=== PATIENT | female | born 2000 | race Caucasian/White ===

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

== ENCOUNTER 2018-03-20 21:32 | Inpatient (IN) | payer OTHER ==
[2018-03-20 22:01] LABS: APPEARANCE,URINE CLOUDY; BILIRUBIN,URINE NEGATIVE (NEGATIVE); COLOR,URINE AMBER; GLUCOSE, URINE NEGATIVE (NEGATIVE); KETONES,URINE NEGATIVE (NEGATIVE); LEUKOCYTE ESTERASE,URINE LARGE (NEGATIVE); NITRITE,URINE NEGATIVE (NEGATIVE); PROTEIN,URINE 30 mg/dL (NEGATIVE); URINE SPECIFIC GRAVITY 1.023
[2018-03-20 22:19] LABS: URINE AMPHETAMINES SCREEN NEGATIVE; URINE BARBITURATES SCREEN NEGATIVE; URINE BENZODIAZEPINES SCREEN NEGATIVE; URINE COCAINE SCREEN NEGATIVE; URINE MARIJUANA (THC) SCREEN NEGATIVE; URINE METHADONE SCREEN NEGATIVE; URINE PHENCYCLIDINE SCREEN NEGATIVE
[2018-03-20 22:43] LABS: AMNISURE (ROM) NEGATIVE (NEGATIVE)
[2018-03-20] MEDS ORDERED: RINGERS SOLUTION,LACTATED 1,000 ML IV ONE (22:48)
[2018-03-20] MEDS ORDERED: PENICILLIN G POTASSIUM 5,000,000 UNIT in DEXTROSE 5%-WATER 100 ML IV ONE (22:48)
[2018-03-20] MEDS ORDERED: RINGERS SOLUTION,LACTATED 1,000 ML IV PRN (22:48)
[2018-03-20] MEDS ORDERED: PENICILLIN G-K 5 MILLION UNIT VIAL ONE (22:54)
[2018-03-20 23:31] LABS: CHLAM PCR NOT DETECTED (NOT DETECT); GON PCR NOT DETECTED (NOT DETECT)
[2018-03-20 23:32] LABS: ABSOLUTE BASOPHILS # (AUTO) 0.1 10^3/uL (0.0-0.2); ABSOLUTE EOSINOPHILS # (AUTO) 0.2 10^3/uL (0.0-0.6); ABSOLUTE LYMPHOCYTES (AUTO) 2.1 10^3/uL (0.5-4.7); ABSOLUTE MONOCYTES (AUTO) 0.9 10^3/uL (0.1-1.4); ABSOLUTE NEUT (AUTO) 10.2 10^3/uL (1.7-8.2); BASOPHILS % (AUTO) 0.5 % (0-2); EOSINOPHILS % (AUTO) 1.7 % (0-6); HEMATOCRIT 29.7 % (36.0-47.0); HEMOGLOBIN 9.4 g/dL (12.0-15.5); LYMPHOCYTES % (AUTO) 15.5 % (13-45); MEAN CORPUSCULAR HEMOGLOBIN 21.1 pg (27.0-33.4); MEAN CORPUSCULAR HGB CONC 31.7 g/dL (32.0-36.0); MEAN CORPUSCULAR VOLUME 67 fl (80-97); MONOCYTES % (AUTO) 6.5 % (3-13); PLATELET COUNT 262 10^3/uL (150-450); RED BLOOD COUNT 4.46 10^6/uL (3.72-5.28); RED CELL DISTRIBUTION WIDTH 18.8 % (11.5-14.0); SEGMENTED NEUTROPHILS % (AUTO) 75.8 % (42-78); TOTAL CELLS COUNTED % (AUTO) 100 %; WHITE BLOOD COUNT 13.5 10^3/uL (4.0-10.5)
[2018-03-20] MEDS ORDERED: ACETAMINOPHEN 325 MG TABLET ONE (23:40)
[2018-03-20] MEDS ORDERED: ONDANSETRON HCL INJ/PF 4 MG/2 ML SDV ONE (23:41)
--- NOTE | 2018-03-21 01:20 | Admission Physical ---
Datetime Report Generated by CPN: 03/21/2018 01:19 CURRENT ADMISSION Chief Complaint: Uterine Contractions Indication for Induction: Not Applicable; Post Dates Admit Impression : Term, Intrauterine ; Active Labor Admit Plan: Admit to Unit; Initiate Labor Protocol Admit Plan- Other: no care. disengaged from [facility] in December of 2017 ALLERGIES Medication Allergies: No Medication Allergies: No Known Allergies (03/20/2018) Latex: No Latex Allergies Food Allergies: N/A Environmental Allergies: N/A OBSTETRICAL HISTORY EDC: 03/10/2018 00:00 : 3 Para: 2 Term: 2 : 0 SAB: 0 IAB: 0 Ectopic: 0 Livin Cesareans: 0 VBACs: 0 Multiple Births: 0 Gestational Diabetes: No Rh Sensitization: No Incompetent Cervix: No RONA: No Infertility: No ART Treatment: No Uterine Anomaly: No IUGR: No Hx Previous C/S: No Macrosomia: No Hx Loss/Stillborn: No PIH: No Hx : No Placenta Previa/Abruption: No Depression/PP Depression: No PTL/PROM: No Post Hemorrhage: No Current Procedures: None Obstetrical History Comments: G1: 40 weeks G2: 40 weeks G3: current SEE RECORDS Alcohol: No Marijuana : No Cocaine: No Other Illicit Drugs: No Cigarettes: Never Smoker. [id number] MEDICAL HISTORY Diabetes: No Blood Transfusion: No Pulmonary Disease (Asthma, TB): No Breast Disease: No Hypertension: No Information Analyst Surgery: No Heart Disease: No Hosp/Surgery: Yes Autoimmune Disorder: No Anesthetic Complications: No Kidney Disease: No Abnormal Pap Smear: No Neuro/Epilepsy: No Psychiatric Disorders: No Other Medical Diseases: No Hepatitis/Liver Disease: No Significant Family History: No Varicosities/Phlebitis: No Trauma/Violence : No Thyroid Dysfunction: No Medical History Comments: Tonsillectomy Childbirth INFECTIOUS HISTORY Gonorrhea: No Genital Herpes: No Chlamydia: No Tuberculosis: No Syphilis: No Hepatitis: No HIV/AIDS Exposure: No Rash or Viral Illness: No HPV: No PHYSICAL EXAM General: Normal HEENT: Normal Neurologic: Normal Thyroid: Normal Heart: Normal Lungs: Normal Breast: Normal Back: Normal Abdomen: Normal Genitourinary Exam: Normal Extremities: Normal DTRs: Normal Pelvic Type: Adequate Vital Signs: Reviewed; Within Normal Limits VAGINAL EXAM Dilatation: 4 Effacement: 80 Station: -3 MEMBRANES Pooling: Negative Membranes: Intact FETUS A EGA: 41.4 Monitoring: External US FHR- Baseline: 150 Variability: Moderate 6-25bpm Accelerations: 15X15 FHR Category: Category I Estimated Weight (gm): 3800 Presentation: Vertex PLANS FOR LABOR AND DELIVERY Labor and Delivery: None Pain Management: Natural Feeding Preference: Formula Benefit of Breast Feed Discussed: Yes Circumcision: Yes INFORMED CONSENT Signature: with User ID: [email or web address]
[2018-03-21] MEDS ORDERED: PENICILLIN G-K 5 MILLION UNIT VIAL ONE ×2 (02:19→05:58)
[2018-03-21] MEDS: PENICILLIN G POTASSIUM 2,500,000 UNIT in DEXTROSE 5%-WATER 50 ML IV SCH ×5 (02:33→18:23)
[2018-03-21] MEDS ORDERED: LIDOCAINE 1% INJ-PF (10 MG/ML) 30 ML SDV ONE (05:17)
[2018-03-21] MEDS ORDERED: OXYTOCIN/NORMAL SALINE 20 UNIT/1,000 ML RTUINJ ONE (05:17)
[2018-03-21] MEDS ORDERED: MISOPROSTOL 0.2 MG TABLET ONE (05:17)
[2018-03-21] MEDS ORDERED: PROMETHAZINE HCL 25 MG TABLET PO PRN (07:22)
[2018-03-21] MEDS ORDERED: BENZOCAINE/MENTHOL AEROSOL SPRAY 56 ML TOP PRN (07:22)
[2018-03-21] MEDS ORDERED: NA PHOS,M-B/NA PHOS,DI-BA (ADULT) 133 ML ENEMA PR PRN (07:22)
[2018-03-21] MEDS ORDERED: DIPHENHYDRAMINE HCL 25 MG CAPSULE PO PRN (07:22)
[2018-03-21] MEDS ORDERED: ACETAMINOPHEN 325 MG TABLET PO PRN (07:22)
[2018-03-21] MEDS ORDERED: DIBUCAINE 1% OINTMENT 28 GM TP PRN (07:22)
[2018-03-21] MEDS ORDERED: MEASLES,MUMPS&RUBELLA VACC/PF 0.5 ML VIAL SUBCUT PRN (07:22)
[2018-03-21] MEDS ORDERED: PROMETHAZINE HCL INJ 25 MG/1 ML VIAL IV PRN (07:22)
[2018-03-21] MEDS ORDERED: ZOLPIDEM TARTRATE 5 MG TABLET PO PRN (07:22)
[2018-03-21] MEDS ORDERED: ACETAMINOPHEN 650 MG SUPP.RECT PR PRN (07:22)
[2018-03-21] MEDS ORDERED: OXYTOCIN/NORMAL SALINE 20 UNIT/1,000 ML RTUINJ IV PRN (07:22)
[2018-03-21] MEDS ORDERED: PSEUDOEPHEDRINE HCL 30 MG TABLET PO PRN (07:22)
[2018-03-21] MEDS ORDERED: PROMETHAZINE HCL 25 MG SUPP.RECT PR PRN (07:22)
[2018-03-21] MEDS ORDERED: ACETAMINOPHEN WITH CODEINE #3 TABLET PO PRN ×2 (07:22)
[2018-03-21] MEDS ORDERED: DIPH/PERTUSS(ACELL)/TETANUS VAC/PF 0.5 ML SYR (>=10YO) IM PRN (07:22)
[2018-03-21] MEDS ORDERED: GLYCERIN/WITCH HAZEL LEAF 1 EACH MED..PAD TP PRN (07:22)
[2018-03-21] MEDS ORDERED: MAGNESIUM HYDROXIDE SUSP 30 ML UDCUP PO PRN (07:22)
--- NOTE | 2018-03-21 08:36 | Delivery Summary ---
Del Sum A-C Datetime Report Generated by CPN: 03/21/2018 08:36 DELIVERY PERSONNEL DELIVERY PERSONNEL: [id number] Delivery Doctor:: Any Tsai MD Labor and Delivery Nurse:: Leena Ludwig RNcnc machinist 2nd shift Nurse:: Brittani Antoine RN Director Of State/PACKAGE CAR DRIVER: Tae Almanzar PACKAGE CAR DRIVER Additional Personnel: : Avril Gonsales RN MATERNAL INFORMATION Delivery Anesthesia: None Medications After Delivery: Pitocin Bolus-Please Comment Meds After Delivery Comment: Pitocin 20 Units in 1 L NS Bolusing Estimated Blood Loss (ml): 150 Maternal Complications: None Provider Comments: delivered in normal fashion while patient on floor at bedside. LABOR SUMMARY EDC: 03/10/2018 00:00 No. Babies in Womb: 1 Attempted: No Labor Anesthesia: None LABOR INFORMATION Reason for Induction: Not Applicable Onset of Labor: 03/21/2018 02:29 Complete Dilatation: 03/21/2018 06:28 Oxytocin: N/A Group B Beta Strep: Unknown Antibiotics # of Doses: 3 Antibiotics Time of Last Dose: 04 Name of Antibiotic Given: PCN Steroids Given: None Reason Steroids Not Administered: Not Applicable MEMBRANES Membranes Rupture Method: Artificial Rupture of Membranes: 03/21/2018 02:29 Length of Rupture (hr): 4.03 Amniotic Fluid Color: Clear Amniotic Fluid Amount: Small Amniotic Fluid Odor: Normal STAGES OF LABOR Stage 1 hr: 3 Stage 1 min: 59 Stage 2 hr: 0 Stage 2 min: 3 Stage 3 hr: 0 Stage 3 min: 5 Total Time in Labor hr: 4 Total Time in Labor min: 7 VAGINAL DELIVERY Episiotomy: None Laceration #1: None Laceration Extension #1: N/A Laceration Repair: Not Applicable Sponge Count Correct: N/A Sharps Count Correct: N/A CSECTION DELIVERY Primary Indication: N/A Secondary Indication: N/A CSection Incidence: N/A Labor: N/A Elective: N/A CSection Incision: N/A BABY A INFORMATION Delivery Date/Time: 03/21/2018 06:31 Method of Delivery: Vaginal Born in Route : No : N/A Forceps: N/A Vacuum Extraction: N/A Shoulder Dystocia : No PRESENTATION/POSITION BABY A Presentation: Cephalic Cephalic Presentation: Vertex Vertex Position: Right Occipital Anterior Breech Presentation: N/A PLACENTA INFORMATION BABY A Placenta Delivery Time : 03/21/2018 06:36 Placenta Method of Delivery: Spontaneous Placenta Status: Delivered SCORES BABY A Heart Rate 1 min: >100 bpm Resp Effort 1 min: Good Cry Reflex Irritability 1 min: Cough or Sneeze or Pulls Away Muscle Tone 1 min: Active Motion Color 1 min: Body Toyei, Extremities Blue Resuscitation Effort 1 min: Tactile Stimulation SCORE 1 MIN: 9 Heart Rate 5 min: >100 bpm Resp Effort 5 min: Good Cry Reflex Irritability 5 min: Cough or Sneeze or Pulls Away Muscle Tone 5 min: Active Motion Color 5 min: Body Toyei, Extremities Blue Resuscitation Effort 5 min: Tactile Stimulation SCORE 5 MIN: 9 INFANT INFORMATION BABY A Gestational Age at Delivery: 41.4 Gestational Status: Late Term- 41- 41.6 Weeks Infant Outcome : Liveborn Infant Condition : Stable Infant Sex: Male IDENTIFICATION BABY A Infant Verification Date/Time: 03/21/2018 06:58 ID Band Number: [id number] Mother's Name Verified: Yes Infant RN Verifying : M Hill RN C Gentilin RN WEIGHT/LENGTH BABY A Infant Birthweight (gm): 4270 Weight (lb): 9 Weight (oz): 7 Length (in): 22.00 Length (cm): 55.88 CORD INFORMATION BABY A No. Cord Vessels: 3 Nuchal Cord : N/A Cord Blood Taken: No-Annotate Infant Suction: None ASSESSMENT BABY A Complications: Multiple Variable Decels Physical Findings at Delivery: Molding of the Head Infant Respirations: Appears Normal Skin to Skin: Yes Medical Collections/ALS Called : No Care By: Julia Ludwig RN Transferred To: Remains with Mother BABY B INFORMATION : N/A SIGNATURES Signature: with User ID: [email or web address]
[2018-03-21] MEDS: SENNOSIDES/DOCUSATE 8.6-50 MG 1 EACH TABLET PO SCH (10:32)
[2018-03-21] MEDS: DOCUSATE SODIUM 100 MG CAPSULE PO SCH ×2 (10:32→18:23)
[2018-03-21] MEDS: PRENATAL VITAMIN W DHA CAPSULE PO SCH (10:33)
[2018-03-21] MEDS: FAMOTIDINE 20 MG TABLET PO SCH ×2 (10:33→21:27)
[2018-03-21] MEDS: FERROUS SULFATE 325 MG TABLET PO SCH ×2 (10:33→18:22)
[2018-03-21] MEDS: IBUPROFEN 800 MG TABLET PO SCH ×2 (13:19→21:27)
[2018-03-22] MEDS: PENICILLIN G POTASSIUM 2,500,000 UNIT in DEXTROSE 5%-WATER 50 ML IV SCH ×2 (05:26→06:07)
[2018-03-22] MEDS: IBUPROFEN 800 MG TABLET PO SCH ×3 (05:48→21:20)
[2018-03-22 07:43] LABS: HEMATOCRIT 27.6 % (36.0-47.0); HEMOGLOBIN 8.8 g/dL (12.0-15.5); MEAN CORPUSCULAR HEMOGLOBIN 21.8 pg (27.0-33.4); MEAN CORPUSCULAR HGB CONC 31.8 g/dL (32.0-36.0); MEAN CORPUSCULAR VOLUME 69 fl (80-97); PLATELET COUNT 228 10^3/uL (150-450); RED BLOOD COUNT 4.02 10^6/uL (3.72-5.28); RED CELL DISTRIBUTION WIDTH 18.6 % (11.5-14.0); WHITE BLOOD COUNT 12.3 10^3/uL (4.0-10.5)
--- NOTE | 2018-03-22 09:22 | PDOC PROGRESS REPORT ---
Subjective-OB Progress Note for:: 03/22/18 Subjective: Day #1 s/p Denies concerns, states lochia is stable, pain well controlled, voiding without difficulty. Physical Exam (OB) Vital Signs: Temp Pulse Resp BP Pulse Ox 97.6 F 66 16 122/75 98 03/22/18 07:51 03/22/18 07:51 03/22/18 07:51 03/22/18 07:51 03/22/18 07:51 Intake & Output 03/21/18 03/22/18 03/23/18 06:59 06:59 06:59 Weight 110.8 kg - Lochia Lochia Amount: Scant < 10 ml Lochia Color: Rubra/Red - Abdomen Description: Soft, Round Hernia Present: No Fundal Description: Firm, Midline Fundal Height: u/u - u/2 Objective-Diagnostic Laboratory: 03/22/18 07:03 03/20/18 03/22/18 23:08 07:03 WBC 12.3 H RBC 4.02 Hgb 8.8 L Hct 27.6 L MCV 69 L MCH 21.8 L MCHC 31.8 L RDW 18.6 H Plt Count 228 Antibody Screen NEGATIVE Assessment and Plan(PN) - Assessment and Plan (1) Vaginal delivery Is this a current diagnosis for this admission?: Yes Plan: routine pp care - Time Spent with Patient Time with patient: Less than 15 minutes Critical Time spent with patient: Less than 15 minutes Medications reviewed and adjusted accordingly: Yes - Disposition Anticipated Discharge: Home Within: within 24 hours
[2018-03-22] MEDS: SENNOSIDES/DOCUSATE 8.6-50 MG 1 EACH TABLET PO SCH (10:13)
[2018-03-22] MEDS: FAMOTIDINE 20 MG TABLET PO SCH ×2 (10:13→21:22)
[2018-03-22] MEDS: PRENATAL VITAMIN W DHA CAPSULE PO SCH (10:13)
[2018-03-22] MEDS: DOCUSATE SODIUM 100 MG CAPSULE PO SCH ×2 (10:14→17:31)
[2018-03-22] MEDS: FERROUS SULFATE 325 MG TABLET PO SCH ×2 (10:14→17:31)
[2018-03-23] MEDS: IBUPROFEN 800 MG TABLET PO SCH (06:01)
[2018-03-23 08:17] VITALS: BP 119/70
--- NOTE | 2018-03-23 08:56 | PDOC DISCHARGE SUMMARY ---
Final Diagnosis Discharge Date: 03/23/18 - Final Diagnosis (1) Vaginal delivery Is this a current diagnosis for this admission?: Yes (2) Acute blood loss anemia Is this a current diagnosis for this admission?: Yes (3) No care in current Is this a current diagnosis for this admission?: Yes Discharge Data - Discharge Medication Prescriptions: Docusate Sodium [Colace 100 mg Capsule] 100 mg PO BID #60 capsule Ferrous Sulfate [Feosol 325 mg Tablet] 325 mg PO BID #60 tablet Ibuprofen [Motrin 800 mg Tablet] 800 mg PO Q8 #60 tablet Home Medications: Docusate Sodium [Colace 100 mg Capsule] 100 mg PO BID #60 capsule 03/23/18 Ferrous Sulfate [Feosol 325 mg Tablet] 325 mg PO BID #60 tablet 03/23/18 Ibuprofen [Motrin 800 mg Tablet] 800 mg PO Q8 #60 tablet 03/23/18 Gestational Age: 41.4 Reason(s) for Admission: Onset of Labor Procedures: NST Intrapartum Procedure(s): Spontaneous Vaginal Delivery - [place] Data Baby 1 Female at 1 minute: 9 at 5 minutes: 9 Weight: 4270 kg Home with Mother: Yes Complications: No - Diagnosis Test Laboratory: Temp Pulse Resp BP Pulse Ox 98.2 F 70 18 119/70 98 03/23/18 07:04 03/23/18 07:04 03/23/18 07:04 03/23/18 07:04 03/23/18 07:04 03/20/18 03/20/18 03/22/18 21:50 23:08 07:03 RBC 4.46 4.02 Hgb 9.4 L 8.8 L Hct 29.7 L 27.6 L Urine Opiates Screen NEGATIVE - Discharge information/Instructions Discharge Activity: Activity As Tolerated, Pelvic Rest, No tub bath Discharge Diet: Regular Disposition: HOME, SELF-CARE Follow up with: [facility] in: 3 - ochd, disengaged from [facility], Weeks
[2018-03-23] MEDS: FAMOTIDINE 20 MG TABLET PO SCH (09:50)
[2018-03-23] MEDS: PRENATAL VITAMIN W DHA CAPSULE PO SCH (09:50)
[2018-03-23] MEDS: FERROUS SULFATE 325 MG TABLET PO SCH (09:50)
[2018-03-23] MEDS: SENNOSIDES/DOCUSATE 8.6-50 MG 1 EACH TABLET PO SCH (09:50)
[2018-03-23] MEDS: DOCUSATE SODIUM 100 MG CAPSULE PO SCH (09:50)
== END 2018-03-23 13:46 | disposition home or self-care (01) | DRG 775 ==
LOC: LC 21:32 → LR 23:06 → 2S 03-21 08:49
PROVIDERS: ADMIT Obstetrics & Gynecology; ATTEND Obstetrics & Gynecology
PROC: 4A1HXCZ Monitoring of Products of Conception, Cardiac Rate, External Approach (ICD-10-PCS; 2018-03-20)
PROC: 10E0XZZ Delivery of Products of Conception, External Approach (ICD-10-PCS; principal; 2018-03-21)
PROC: 10907ZC Drainage of Amniotic Fluid, Therapeutic from Products of Conception, Via Natural or Artificial Opening (ICD-10-PCS; 2018-03-21)
DX: O48.0 Post-term pregnancy (principal); D62 Acute posthemorrhagic anemia; O99.02 Anemia complicating childbirth; O76 Abnormality in fetal heart rate and rhythm complicating labor and delivery; Z3A.41 41 weeks gestation of pregnancy; Z37.0 Single live birth
CPT/HCPCS: 36415; 80307; 81005; 84112; 85025; 85027; 86592; 86850; 86900; 86901; 87491; 87591; J2405; J2540; J2590; J3490; Q0114

== ENCOUNTER 2019-01-16 12:10 | Emergency (ER) | payer OTHER ==
[2019-01-16] MEDS ORDERED: NORMAL SALINE 1000 ML 1,000 ML IV ONE (12:48)
--- NOTE | 2019-01-16 12:50 | ER Document Report ---
ED Medical Screen (RME) - General Chief Complaint: Vaginal Bleeding Stated Complaint: VAGINAL BLEEDING Time Seen by Provider: 01/16/19 12:46 Primary Care Provider: PAULINO JIMENEZ MD [Primary Care Provider] - Follow up as needed Mode of Arrival: Ambulatory Information source: Patient Notes: Patient states that she miscarried at home 6 days ago. Patient reports that she was 17 weeks at the time. Patient states since then she has not been feeling normal has had pelvic cramping with vaginal bleeding. Patient denies any fever. Patient states she was seen for threatened miscarriage in [place] but was not happy with her care and left and miscarried at home. Patient has been seen at this facility before and her blood type is A+. I have greeted and performed a rapid initial assessment of this patient. A comprehensive ED assessment and evaluation of the patient, analysis of test results and completion of the medical decision making process will be conducted by additional ED providers. TRAVEL OUTSIDE OF THE [place] IN LAST 30 DAYS: No - Related Data Allergies/Adverse Reactions: No Known Allergies Allergy (Verified 01/16/19 12:11) Past Medical History Renal/ Medical History: Denies: Hx Peritoneal Dialysis - Immunizations Hx Diphtheria, Pertussis, Tetanus Vaccination: No Physical Exam - Vital signs Vitals: Temp Pulse Resp BP Pulse Ox 99.3 F 84 16 136/81 H 100 01/16/19 12:30 01/16/19 12:30 01/16/19 12:30 01/16/19 12:30 01/16/19 12:30 - Abdominal Tenderness: Tender - Lower pelvic Course - Vital Signs Vital signs: Temp Pulse Resp BP Pulse Ox 99.3 F 84 16 136/81 H 100 01/16/19 12:30 01/16/19 12:30 01/16/19 12:30 01/16/19 12:30 01/16/19 12:30 Doctor's Discharge - Discharge Referrals: PAULINO JIMENEZ MD [Primary Care Provider] - Follow up as needed
[2019-01-16 14:33] LABS: ABSOLUTE BASOPHILS # (AUTO) 0.1 10^3/uL (0.0-0.2); ABSOLUTE EOSINOPHILS # (AUTO) 0.2 10^3/uL (0.0-0.6); ABSOLUTE LYMPHOCYTES (AUTO) 2.3 10^3/uL (0.5-4.7); ABSOLUTE MONOCYTES (AUTO) 0.7 10^3/uL (0.1-1.4); ABSOLUTE NEUT (AUTO) 8.7 10^3/uL (1.7-8.2); BASOPHILS % (AUTO) 0.5 % (0-2); EOSINOPHILS % (AUTO) 1.7 % (0-6); HEMATOCRIT 32.4 % (36.0-47.0); HEMOGLOBIN 10.7 g/dL (12.0-15.5); LYMPHOCYTES % (AUTO) 19.4 % (13-45); MEAN CORPUSCULAR HEMOGLOBIN 24.4 pg (27.0-33.4); MEAN CORPUSCULAR HGB CONC 33.1 g/dL (32.0-36.0); MEAN CORPUSCULAR VOLUME 74 fl (80-97); MONOCYTES % (AUTO) 6.2 % (3-13); PLATELET COUNT 268 10^3/uL (150-450); SEGMENTED NEUTROPHILS % (AUTO) 72.2 % (42-78); TOTAL CELLS COUNTED % (AUTO) 100 %
[2019-01-16 14:58] LABS: ALANINE AMINOTRANSFERASE 18 U/L (9-52); ALBUMIN 3.8 g/dL (3.5-5.0); ALKALINE PHOSPHATASE 97 U/L (38-126); ANION GAP 12 (5-19); ASPARTATE AMINO TRANSFERASE 16 U/L (14-36); BILIRUBIN,DIRECT 0.2 mg/dL (0.0-0.4); BILIRUBIN,TOTAL 0.4 mg/dL (0.2-1.3); BLOOD UREA NITROGEN 10 mg/dL (7-20); CALCIUM 9.4 mg/dL (8.4-10.2); CARBON DIOXIDE 24 mmol/L (22-30); CHLORIDE 106 mmol/L (98-107); GLUCOSE 79 mg/dL (75-110); POTASSIUM 3.9 mmol/L (3.6-5.0); SODIUM 141.6 mmol/L (137-145); TOTAL PROTEIN 6.8 g/dL (6.3-8.2)
[2019-01-16] MEDS ORDERED: HYDROMORPHONE HCL INJ/PF 2 MG/ML AMPULE IV ONE (16:05)
[2019-01-16] MEDS ORDERED: METOCLOPRAMIDE HCL INJ/PF 10 MG/2 ML SDV IV ONE (16:05)
--- NOTE | 2019-01-16 16:11 | ER Document Report ---
ED General - General Chief Complaint: Vaginal Bleeding Stated Complaint: VAGINAL BLEEDING Time Seen by Provider: 01/16/19 12:46 Primary Care Provider: PAULINO JIMENEZ MD [ACTIVE STAFF] - Follow up as needed Mode of Arrival: Ambulatory Information source: Patient TRAVEL OUTSIDE OF THE [place] IN LAST 30 DAYS: No - HPI Patient complains to provider of: Post miscarriage discomfort Onset: Other - 5 days ago Quality of pain: Cramping Severity: Severe Pain Level: 4 Associated symptoms: denies: Chills, Diarrhea, Fever, Nausea, Vomiting Exacerbated by: Denies Relieved by: Denies Similar symptoms previously: No Recently seen / treated by doctor: No Notes: 18-year-old female 4 para 3 states that she had a miscarriage at 17-1/2 weeks at a facility in [place]. Patient relates that she was discharged shortly after giving to the nonviable fetus. Ever since then has felt a lot of cramping, contractions, lightheadedness and dizziness and feeling like she is going to pass out. Denies fevers and shaking chills. Denies foul-smelling lochia. Never had anything like this in the past. No dysuria or frequency. - Related Data Allergies/Adverse Reactions: No Known Allergies Allergy (Verified 01/16/19 12:11) Past Medical History - General Information source: Patient - Social History Smoking Status: Never Smoker Family History: Reviewed & Not Pertinent Renal/ Medical History: Denies: Hx Peritoneal Dialysis - Immunizations Hx Diphtheria, Pertussis, Tetanus Vaccination: No Review of Systems - Review of Systems Notes: Constitutional: No fevers. No chills. EENT: No eye redness. No eye pain. No ear pain. No sore throat. Cardiovascular: No chest pain. No palpitations. Respiratory: No cough. No shortness of breath. No respiratory distress. Gastrointestinal: No abdominal pain. No nausea, vomiting, or diarrhea. Genitourinary: Positive for pelvic cramping, vaginal bleeding, contractions Musculoskeletal: Atraumatic. No swelling. No deformities. Skin: No rash or lesions. Lymphatic: No swollen lymph nodes. Neurologic: No headache. No syncope. Psychiatric: No suicidal or homicidal ideation. Physical Exam - Vital signs Vitals: Temp Pulse Resp BP Pulse Ox 99.3 F 84 16 136/81 H 100 01/16/19 12:30 01/16/19 12:30 01/16/19 12:30 01/16/19 12:30 01/16/19 12:30 - Notes Notes: General: Well-developed, well-nourished. In no acute distress. Non-toxic appearing. Cardiac: Well-perfused. Regular rate and rhythm. No murmurs, rubs, or gallops. Pulmonary: No respiratory distress. No cyanosis. Bilateral lung fiels are clear to auscultation. Abdominal: Suprapubic tenderness to palpation. Otherwise abdomen is soft and nontender. No guarding or rebound. Bowel sounds are present in all 4 quadrants HEENT: Head is atraumatic. Conjunctivae not reddened. No tearing. PERRL. EOMI. Orbits atraumatic. No periorbital swelling or erythema. Oropharynx is without erythema, swelling, or exudates. Neck: Supple. No adenopathy. No meningismus. Dermatologic: Warm with good turgor. No rash. Atraumatic. Chest: Atraumatic. No chest wall tenderness to palpation. Musculoskeletal: Moves all extremities well. No range of motion deficits. no muscular or joint tenderness. No paraspinal muscle tenderness. no midline spinal tenderness or step-off. Genitourinary: Examination deferred Neurologic: No gross neurologic deficits. Psychiatric: Normal mood. Course - Re-evaluation Re-evalutation: 01/16/19 16:11 Labs are drawn and ultrasound has been ordered. We will need to check to see if there is any retained products. She has had babies in this hospital before and it was noted that the patient has A positive blood type. 01/16/19 20:28 Labs all look good. Mild anemia. Mild ketonuria. Patient admits that she has not been eating or drinking very much since her miscarriage on Sunday. Ultrasound shows no evidence of retained products. Patient is aware that her hCG level is slowly going down and is close to being completely gone. I will have her follow-up as needed with obstetrics. Told her to take ibuprofen as needed for the pelvic pain. Ultram as needed for moderate to severe pain - Vital Signs Vital signs: Temp Pulse Resp BP Pulse Ox 98.5 F 87 16 124/60 100 01/16/19 20:17 01/16/19 20:17 01/16/19 20:17 01/16/19 20:17 01/16/19 20:17 - Laboratory Result Diagrams: 01/16/19 14:07 01/16/19 14:07 Laboratory results interpreted by me: 01/16/19 01/16/19 01/16/19 14:07 14:07 16:38 WBC 12.0 H Hgb 10.7 L Hct 32.4 L MCV 74 L MCH 24.4 L RDW 18.0 H Absolute Neutrophils 8.7 H Beta HCG, Quant 567.83 H Urine Ketones TRACE H Urine Blood LARGE H Urine Urobilinogen 4.0 H Ur Leukocyte Esterase SMALL H Discharge - Discharge Clinical Impression: Miscarriage, Pelvic pain Condition: Good Disposition: HOME, SELF-CARE Instructions: Miscarriage ([facility]), Pelvic Pain ([facility]) Additional Instructions: You need to eat and drink plenty of fluids to give your body energy. Pain medication as needed. Follow-up routinely as needed with [facility]. Do not drive further than 10 miles tonight due to your weakness and lightheadedness. Prescriptions: Tramadol HCl [Ultram] 50 mg PO Q6HP PRN #12 tablet PRN Reason: Referrals: PAULINO JIMENEZ MD [ACTIVE STAFF] - Follow up as needed Print Language: Anguill[place]
[2019-01-16 17:16] LABS: APPEARANCE,URINE SLIGHTLY-CLOUDY; BILIRUBIN,URINE NEGATIVE (NEGATIVE); COLOR,URINE YELLOW; GLUCOSE, URINE NEGATIVE (NEGATIVE); KETONES,URINE TRACE mg/dL (NEGATIVE); LEUKOCYTE ESTERASE,URINE SMALL (NEGATIVE); NITRITE,URINE NEGATIVE (NEGATIVE); PROTEIN,URINE NEGATIVE (NEGATIVE); URINE SPECIFIC GRAVITY 1.025
--- NOTE | 2019-01-16 19:28 | RADIOLOGY REPORT (SQ) ---
EXAM DESCRIPTION: U/S NON-OB PELVIS TV W/O DOP COMPLETED DATE/TIME: 01/16/2019 7:15 pm REASON FOR STUDY: pelvic pain, hx miscarriage 6 days ago COMPARISON: None. TECHNIQUE: Dynamic and static grayscale images acquired of the pelvis via transvaginal approach and recorded on PACS. Additional selected color Doppler and spectral images recorded. LIMITATIONS: None. FINDINGS: UTERUS: Contour normal. No mass. ENDOMETRIAL STRIPE: No focal or generalized thickening. No masses. CERVIX: No nabothian cysts. RIGHT OVARY AND DOPPLER: Ovary not visualized. LEFT OVARY AND DOPPLER: Ovary not visualized. FREE FLUID: None noted. OTHER: No other significant finding. MEASUREMENTS: UTERUS: 7.3 x 7.7 x 13.1 cm. ENDOMETRIAL STRIPE: 2.6 mm. RIGHT OVARY: Not visualized. LEFT OVARY: Not visualized. IMPRESSION: OVARIES NOT VISUALIZED. OTHERWISE UNREMARKABLE TRANSVAGINAL PELVIC ULTRASOUND. TECHNICAL DOCUMENTATION: JOB ID: [id number] [email or web address]- All Rights Reserved Rev Reading location - IP/workstation name: [email or web address]
[2019-01-16 20:22] VITALS: BP 124/60
== END 2019-01-16 20:58 | disposition home or self-care (01) ==
LOC: ER 12:10
DX: O03.9 Complete or unspecified spontaneous abortion without complication (principal); N93.9 Abnormal uterine and vaginal bleeding, unspecified; R42 Dizziness and giddiness; R10.9 Unspecified abdominal pain; R10.2 Pelvic and perineal pain; Z98.890 Other specified postprocedural states
CPT/HCPCS: 99284; 96361; 96374; 96375; 36415; 84702; 85025; 80053; 81001; 76830; J2765; J1170; J7030

== ENCOUNTER 2019-12-09 23:13 | Emergency (ER) | payer OTHER ==
[2019-12-10] MEDS ORDERED: CIPROFLOXACIN HCL/DEXAMETH OTIC DROP 7.5 ML AU ONE (04:14)
[2019-12-10] MEDS ORDERED: DEXAMETHASONE SOD PHOS INJ 10 MG/1 ML VIAL IM ONE (04:14)
--- NOTE | 2019-12-10 04:15 | ER Document Report ---
HPI - HPI Time Seen by Provider: 12/10/19 03:36 Pain Level: 2 Context: Patient is a 19-year-old female that comes to the emergency department for chief complaint of bilateral ear pain, much worse on the right. She states this is been going on for several days. She states that a week ago she was treated for middle ear infections and this resolved her symptoms but for the past couple of days this has been developing. She denies hearing loss, drainage from the ear, however she has been wearing earplugs a lot recently. She denies submerging in water. She denies headache, fever. She states she hurts in her neck but she denies throat pain, she denies any other symptoms. She denies any daily medications, denies . Past medical history of tonsillectomy. - EENT EENT: REPORTS: Ear Pain - REPRODUCTIVE Reproductive: DENIES: : Past Medical History - General Information source: Patient - Social History Smoking Status: Never Smoker Frequency of alcohol use: None Drug Abuse: None Lives with: Family Family History: Reviewed & Not Pertinent Patient has suicidal ideation: No Patient has homicidal ideation: No Pulmonary Medical History: Reports: Hx Asthma Renal/ Medical History: Denies: Hx Peritoneal Dialysis Past Surgical History: Reports: Hx Tonsillectomy - Immunizations Hx Diphtheria, Pertussis, Tetanus Vaccination: No Vertical Provider Document - CONSTITUTIONAL General Appearance: WD/WN, No Apparent Distress - INFECTION CONTROL TRAVEL OUTSIDE OF THE [place] IN LAST 30 DAYS: No - HEENT HEENT: Atraumatic, Normocephalic. negative: Normal ENT Exam - There is tenderness over the right tragus, ear canal is erythematous, but tympanic membrane is normal. Mastoid normal. Left ear also has mild erythema of the canal but is completely normal otherwise. Normal oropharyngeal exam and nasal exam. Normal eyes. - NECK Neck: Other - Mild cervical adenopathy, no Ludewig's angina or concerning swelling, no concerning tenderness - RESPIRATORY Respiratory: Breath Sounds Normal, No Respiratory Distress - CARDIOVASCULAR Cardiovascular: Regular Rate, Regular Rhythm - GI/ABDOMEN Gastrointestinal: Abdomen Soft, Abdomen Non-Tender. negative: Abdomen Tender - BACK Back: Normal Inspection - MUSCULOSKELETAL/EXTREMETIES Musculoskeletal/Extremeties: MAEW, FROM, Non-Tender - NEURO Level of Consciousness: Awake, Alert, Appropriate Motor/Sensory: No Motor Deficit, No Sensory Deficit - DERM Integumentary: Warm, Dry, No Rash Course - Vital Signs Vital signs: Temp Pulse Resp BP Pulse Ox 98.2 F 69 20 141/86 H 99 12/09/19 23:55 12/09/19 23:55 12/09/19 23:55 12/09/19 23:55 12/09/19 23:55 Discharge - Discharge Clinical Impression: Cervical adenopathy Otitis externa Qualifiers: Otitis externa type: unspecified type Chronicity: acute Laterality: bilateral Qualified Code(s): H60.503 - Unspecified acute noninfective otitis externa, bi lateral Condition: Stable Disposition: HOME, SELF-CARE Additional Instructions: Your evaluation is consistent with otitis externa, inflammation/infection of the ear canals. Use the eardrops (4 drops, twice a day, for 7 days), you have been treated with Decadron to help with your symptoms of swollen lymph nodes as well. You can take 1000 mg of Tylenol and 600 mg of ibuprofen together every 6 hours for pain if needed. Follow-up with primary care. Return if you worsen including swelling or redness at the ear, severe headache, fever, vomiting, or any other concerning symptoms. Prescriptions: Ciprofloxacin HCl/Dexameth [Ciprodex Otic Suspension 7.5 ml Bottle] 4 drop BID #1 bottle
[2019-12-10 04:30] VITALS: BP 124/67
== END 2019-12-10 04:30 | disposition home or self-care (01) ==
LOC: ER 23:13
DX: H60.503 Unspecified acute noninfective otitis externa, bilateral (principal); R59.0 Localized enlarged lymph nodes; H92.03 Otalgia, bilateral; M54.2 Cervicalgia; J45.909 Unspecified asthma, uncomplicated
CPT/HCPCS: 99282; 96372; J3490; J1100

== ENCOUNTER 2019-12-29 17:41 | Emergency (ER) | payer OTHER ==
[2019-12-29] MEDS ORDERED: ONDANSETRON 4 MG TAB.RAPDIS PO ONE (18:19)
[2019-12-29] MEDS ORDERED: ONDANSETRON HCL INJ/PF 4 MG/2 ML SDV IV ONE ×2 (18:20→20:30)
[2019-12-29] MEDS ORDERED: NORMAL SALINE 1000 ML 1,000 ML IV ONE (18:20)
--- NOTE | 2019-12-29 18:21 | ER Document Report ---
ED Medical Screen (RME) - General Chief Complaint: Nausea/Vomiting Stated Complaint: NAUSEA/VOMITING Time Seen by Provider: 12/29/19 18:17 Mode of Arrival: Ambulatory Information source: Patient Notes: 19-year-old female with no previous history presents the emergency department with reports that she has been vomiting every 15 minutes since 11 PM last night. Reports she ate sausage at [employer] and has been sick ever since. Denies fever or diarrhea. Reports her abdomen is sore from the vomiting. She did attempt to drink malissa sabas and crackers out in the car but she kept vomiting that. Patient looks good nontoxic. I have greeted and performed a rapid initial assessment of this patient. A comprehensive ED assessment and evaluation of the patient, analysis of test results and completion of the medical decision making process will be conducted by additional ED providers. TRAVEL OUTSIDE OF THE [place] IN LAST 30 DAYS: No - Related Data Allergies/Adverse Reactions: No Known Allergies Allergy (Verified 12/29/19 18:10) Past Medical History Pulmonary Medical History: Reports: Hx Asthma Renal/ Medical History: Denies: Hx Peritoneal Dialysis Past Surgical History: Reports: Hx Tonsillectomy - Immunizations Hx Diphtheria, Pertussis, Tetanus Vaccination: No Physical Exam - Vital signs Vitals: Temp Pulse Resp BP Pulse Ox 98.8 F 122 H 16 132/74 H 94 12/29/19 18:00 12/29/19 18:00 12/29/19 18:00 12/29/19 18:00 12/29/19 18:00 Course - Vital Signs Vital signs: Temp Pulse Resp BP Pulse Ox 98.8 F 122 H 16 132/74 H 94 12/29/19 18:00 12/29/19 18:00 12/29/19 18:00 12/29/19 18:00 12/29/19 18:00
[2019-12-29 19:05] LABS: HEMATOCRIT 39.6 % (36.0-47.0); MEAN CORPUSCULAR HGB CONC 32.7 g/dL (32.0-36.0); MEAN CORPUSCULAR VOLUME 73 fl (80-97); PLATELET COUNT 236 10^3/uL (150-450); RED CELL DISTRIBUTION WIDTH 16.9 % (11.5-14.0); WHITE BLOOD COUNT 8.6 10^3/uL (4.0-10.5)
[2019-12-29 19:20] LABS: ALBUMIN 4.4 g/dL (3.5-5.0); ALKALINE PHOSPHATASE 95 U/L (38-126); ANION GAP 10 (5-19); ASPARTATE AMINO TRANSFERASE 19 U/L (14-36); BILIRUBIN,TOTAL 0.6 mg/dL (0.2-1.3); BLOOD UREA NITROGEN 19 mg/dL (7-20); CALCIUM 8.8 mg/dL (8.4-10.2); CARBON DIOXIDE 26 mmol/L (22-30); CHLORIDE 103 mmol/L (98-107); GLUCOSE 122 mg/dL (75-110); POTASSIUM 3.9 mmol/L (3.6-5.0); TOTAL PROTEIN 7.8 g/dL (6.3-8.2)
[2019-12-29 19:28] LABS: ABSOLUTE LYMPHOCYTES# (MANUAL) 0.5 10^3/uL (0.5-4.7); ABSOLUTE MONOCYTES # (MANUAL) 0.5 10^3/uL (0.1-1.4); BAND NEUTROPHILS % (MANUAL) 4 % (3-5); BASOPHILS % (MANUAL) 0 % (0-2); EOSINOPHILS % (MANUAL) 0 % (0-6); LYMPHOCYTES % (MANUAL) 6 % (13-45); MONOCYTES % (MANUAL) 6 % (3-13); SEGMENTED NEUTROPHILS % (MAN) 84 % (42-78); TOTAL CELLS COUNTED 100
[2019-12-29 19:30] LABS: ANISOCYTOSIS 1+; PLATELET COMMENT ADEQUATE
--- NOTE | 2019-12-29 20:43 | ER Document Report ---
ED General - General Chief Complaint: Nausea/Vomiting Stated Complaint: NAUSEA/VOMITING Time Seen by Provider: 12/29/19 18:17 Primary Care Provider: MG BUSTOS MD [ACTIVE STAFF] - Follow up as needed MARIA LUISA NOE MD [ACTIVE STAFF] - Follow up as needed Mode of Arrival: Ambulatory TRAVEL OUTSIDE OF THE [place] IN LAST 30 DAYS: No - HPI Notes: Patient is a 19-year-old female no significant past medical history who presents complaining of nausea and vomiting that began last night after eating [employer]. Patient has not noticed any hematemesis. She is urinating normally and having normal bowel movements otherwise. No vaginal odor, discharge, or bleeding. Denies drug allergies. Patient states that she does not have any significant pain associated. After being through triage and receiving medication and fluid she is feeling much better. She has no other concerns or complaints. Denies any headache, fever, neck pain, URI, sore throat, chest pain, palpitations, syncope, cough, shortness of breath, wheeze, dyspnea, abdominal pain, diarrhea, urinary retention, dysuria, hematuria, back pain, or rash. - Related Data Allergies/Adverse Reactions: No Known Allergies Allergy (Verified 12/29/19 18:10) Past Medical History - General Information source: Patient - Social History Smoking Status: Never Smoker Chew tobacco use (# tins/day): No Frequency of alcohol use: None Drug Abuse: None Family History: Reviewed & Not Pertinent Patient has suicidal ideation: No Patient has homicidal ideation: No Pulmonary Medical History: Reports: Hx Asthma Renal/ Medical History: Denies: Hx Peritoneal Dialysis Past Surgical History: Reports: Hx Tonsillectomy - Immunizations Hx Diphtheria, Pertussis, Tetanus Vaccination: No Review of Systems - Review of Systems -: Yes All other systems reviewed and negative Physical Exam - Vital signs Vitals: Temp Pulse Resp BP Pulse Ox 98.8 F 122 H 16 132/74 H 94 12/29/19 18:00 12/29/19 18:00 12/29/19 18:00 12/29/19 18:00 12/29/19 18:00 - Notes Notes: PHYSICAL EXAMINATION: GENERAL: Well-appearing, well-nourished and in no acute distress. HEAD: Atraumatic, normocephalic. EYES: Pupils equal round and reactive to light, extraocular movements intact, sclera anicteric, conjunctiva are normal. ENT: Nares patent and without discharge. oropharynx clear without exudates. No tonsilar hypertrophy or erythema. Moist mucous membranes. NECK: Normal range of motion, supple without lymphadenopathy LUNGS: Breath sounds clear to auscultation bilaterally and equal. No wheezes rales or rhonchi. HEART: Regular rate and rhythm without murmurs, rubs, gallops. ABDOMEN: Soft, nontender, nondistended abdomen. No guarding, no rebound. Normal bowel sounds present. No CVA tenderness bilaterally. Skinner neg. No tenderness at [place]. Musculoskeletal: FROM to passive/active. Strength 5+/5. Extremities: No cyanosis, clubbing, or edema b/l. Peripheral pulses 2+. Capillary refill less than 3 seconds. NEUROLOGICAL: Cranial nerves grossly intact. Normal speech, normal gait. PSYCH: Normal mood, normal affect. SKIN: Warm, Dry, normal turgor, no rashes or lesions noted. Course - Re-evaluation Re-evalutation: 12/29/19 Patient is an afebrile, well-hydrated, 19-year-old female who presents to the ED with nausea/vomiting, suspect viral. Vitals are acceptable without any significant tachycardia, tachypnea, or hypoxia. PE is otherwise unremarkable. Patient's abdomen is soft and nontender throughout. Labs unremarkable. Patient is nontoxic-appearing is tolerating p.o. without any difficulties. Patient received fluids and Zofran. No other labs or imaging warranted at this time based on H&P. Low suspicion/risk for acute appendicitis, bowel obstruction, acute cholecystitis, acute cholangitis, perforated diverticulitis, incarcerated hernia, pancreatitis, perforated ulcer, peritonitis, sepsis, pelvic inflammatory disease, ectopic , tubo-ovarian abscess, ovarian torsion, or other systemic emergent condition at this time. Patient is aware that her condition can change from initial presentation and she needs to monitor symptoms closely and seek medical attention if any acute changes. I will send her home with prescription for Zofran. Conservative measures otherwise for symptoms. Recheck with your PCM/OBGYN in 2-3 days. Consider consult with GI. Return to the ED with any worsening/concerning symptoms otherwise as reviewed in discharge. Patient is in agreement. - Vital Signs Vital signs: Temp Pulse Resp BP Pulse Ox 98.8 F 122 H 16 132/74 H 94 12/29/19 18:00 12/29/19 18:00 12/29/19 18:00 12/29/19 18:00 12/29/19 18:00 - Laboratory Result Diagrams: 12/29/19 18:50 12/29/19 18:50 Laboratory results interpreted by me: 12/29/19 12/29/19 18:50 18:50 RBC 5.40 H MCV 73 L MCH 24.0 L RDW 16.9 H Seg Neuts % (Manual) 84 H Lymphocytes % (Manual) 6 L Creatinine 0.50 L Glucose 122 H Discharge - Discharge Clinical Impression: Nausea and vomiting Qualifiers: Vomiting type: unspecified Vomiting Intractability: non-intractable Qualified Code(s): R11.2 - Nausea with vomiting, unspecified Condition: Stable Disposition: HOME, SELF-CARE Instructions: Antinausea Medication ([facility]), Vomiting ([facility]) Additional Instructions: Maintain adequate fluid and food intake [place] diet ([employer] Bananas, rice, apples, toast, etc Zofran as needed tylenol if needed Monitor for any worsening symptoms Make sure you are staying hydrated enough to urinate and have normal BM's Recheck with your PCM in 2-3 days Consider consult with Gastroenterology for ongoing/worsening symptoms Return to the ED with any worsening symptoms and/or development of fever, headache, chest pain, palpitations, syncope, shortness of breath, trouble breathing, abdominal pain, n/v/d, blood in stool/urine, weakness, or other worsening symptoms that are concerning to you. Prescriptions: Ondansetron [Zofran Odt 4 mg Tablet] 1 - 2 tab PO Q4H PRN #15 tab.rapdis PRN Reason: For Nausea/Vomiting Forms: Elevated Blood Pressure Referrals: MG BUSTOS MD [ACTIVE STAFF] - Follow up as needed MARIA LUISA NOE MD [ACTIVE STAFF] - Follow up as needed
[2019-12-29] MEDS ORDERED: DICYCLOMINE HCL 20 MG TABLET PO ONE (22:05)
[2019-12-29] MEDS ORDERED: METOCLOPRAMIDE HCL INJ/PF 10 MG/2 ML SDV IV ONE (22:06)
[2019-12-29] MEDS ORDERED: ONDANSETRON ODT 4 MG TAB (6 TAB/ER DISP) PO PRN (22:06)
[2019-12-29 22:58] VITALS: BP 138/76
== END 2019-12-29 22:57 | disposition home or self-care (01) ==
LOC: ER 17:41
DX: R11.2 Nausea with vomiting, unspecified (principal); J45.909 Unspecified asthma, uncomplicated
CPT/HCPCS: 99283; 96361; 96374; 96375; 36415; 83690; 84703; 85025; 80053; J3490; S0119; J2765; J2405; J7030

== ENCOUNTER 2020-02-11 10:01 | Emergency (ER) | payer MEDICAID, OTHER ==
[2020-02-11 10:15] VITALS: BP 125/70
--- NOTE | 2020-02-11 10:42 | ER Document Report ---
HPI - HPI Time Seen by Provider: 02/11/20 10:29 Pain Level: 3 Context: Patient is a 19-year-old female who presents emergency department with a chief complaint of right ear pain. Patient states that she has had her ear pain for the past few days. Patient states that when she starts feeling the ear pain, it usually turns into an ear infection. Denies any fevers. Patient uses earplugs at work. - ROS Systems Reviewed and Negative: Yes All other systems reviewed and negative - CONSTITUTIONAL Constitutional: DENIES: Fever, Chills - EENT EENT: REPORTS: Ear Pain. DENIES: Nasal Drainage-Clear - CARDIOVASCULAR Cardiovascular: DENIES: Chest pain - RESPIRATORY Respiratory: DENIES: Trouble Breathing, Coughing - DERM Skin Color: Normal Skin Problems: None Past Medical History - General Information source: Patient - Social History Smoking Status: Unknown if Ever Smoked Frequency of alcohol use: None Drug Abuse: None Family History: Reviewed & Not Pertinent Patient has homicidal ideation: No Pulmonary Medical History: Reports: Hx Asthma Renal/ Medical History: Denies: Hx Peritoneal Dialysis Psychiatric Medical History: Reports: Hx Depression Traumatic Medical History: Reports: Hx Fractures - ankle and wrist Past Surgical History: Reports: Hx Adenoidectomy, Hx Tonsillectomy - Immunizations Immunizations up to date: Yes Hx Diphtheria, Pertussis, Tetanus Vaccination: Yes Vertical Provider Document - CONSTITUTIONAL Agree With Documented VS: Yes Exam Limitations: No Limitations General Appearance: No Apparent Distress - INFECTION CONTROL TRAVEL OUTSIDE OF THE [place] IN LAST 30 DAYS: No - HEENT HEENT: Atraumatic, Normocephalic, PERRLA, Tympanic Membrane Red - Right. negative: Conjuctival Injection, Pharyngeal Exudate, Pharyngeal Tenderness, Pharyngeal Erythema, Tympanic Membrane Bulging Notes: Mild amount of erythema to right external auditory canal. - RESPIRATORY Respiratory: No Respiratory Distress - CARDIOVASCULAR Cardiovascular: Regular Rate Pulses: Normal: Radial - MUSCULOSKELETAL/EXTREMETIES Musculoskeletal/Extremeties: FROM - NEURO Level of Consciousness: Awake, Alert, Appropriate Motor/Sensory: No Motor Deficit, No Sensory Deficit - DERM Integumentary: Warm, Dry, No Rash Course - Re-evaluation Re-evalutation: 02/11/20 10:39 Patient's physical exam and history is consistent with otitis externa. Patient will be placed on Ciprodex drops. I do not suspect patient has mastoiditis, as there is no pain at the mastoid process. Right tympanic membrane is injected. We will start patient on Augmentin. Patient will follow-up with ENT. Follow-up precautions were given. Verbal discharge instructions were given to the patient. They verbalized understanding. They are stable for discharge. - Vital Signs Vital signs: Temp Pulse Resp BP Pulse Ox 98.1 F 69 18 125/70 100 02/11/20 10:14 02/11/20 10:14 02/11/20 10:14 02/11/20 10:14 02/11/20 10:14 Discharge - Discharge Clinical Impression: Ear pain, right Otitis media Qualifiers: Otitis media type: suppurative Chronicity: acute Laterality: right Recurrence: recurrent Spontaneous tympanic membrane rupture: without spontaneous rupture Qualified Code(s): H66.004 - Acute suppurative otitis media without spontaneous rupture of ear drum, recurrent, right ear Otitis externa Qualifiers: Otitis externa type: unspecified type Chronicity: acute Laterality: right Qualified Code(s): H60.501 - Unspecified acute noninfective otitis externa, right ear Condition: Stable Disposition: HOME, SELF-CARE Instructions: Use of Ear Drops ([facility]), Otitis Externa ([facility]) Additional Instructions: You were seen today in the emergency department for right ear pain. If you continue to have pain, start your antibiotics today. Take ibuprofen 600 mg every 6 hours for your pain. Use the eardrops if you continue to have pain. Follow-up with primary care provider, nuclear medical technologist, and ENT doctor in regards to this visit. Start cetirizine and use it daily. Prescriptions: Cetirizine HCl [All Day Allergy] 10 mg PO DAILY #30 tablet Amoxicillin Trihydrate [Amoxil 500 mg Capsule] 500 mg PO TID #30 cap Ciprofloxacin HCl/Dexameth [Ciprodex Otic Suspension 7.5 ml Bottle] 4 drop OT BID #1 bottle Referrals: DONNA ALMANZAR DO [ASSOCIATE] - Follow up in 1 week
== END 2020-02-11 10:47 | disposition home or self-care (01) ==
LOC: ER 10:01
DX: H66.004 Acute suppurative otitis media without spontaneous rupture of ear drum, recurrent, right ear (principal); H60.501 Unspecified acute noninfective otitis externa, right ear; H92.01 Otalgia, right ear
CPT/HCPCS: 99282

== ENCOUNTER 2020-02-14 02:50 | Emergency (ER) | payer OTHER ==
[2020-02-14] MEDS ORDERED: DEXAMETHASONE SOD PHOS INJ 10 MG/1 ML VIAL IM ONE (04:47)
--- NOTE | 2020-02-14 04:48 | ER Document Report ---
HPI - HPI Time Seen by Provider: 02/14/20 03:44 Pain Level: 3 Context: Patient is a 19-year-old female that comes emergency department for chief complaint of bilateral ear pain and lymph node swelling. She states that she wears earplugs persistently at work, she tries to change these every day, however she still ends up with ear infections frequently. She also states she frequently gets sinus infections. She was placed on Zyrtec, Augmentin, Ciprodex on 02/11/2020 when she was seen here, she states that her symptoms are still not resolved yet. She denies fever, vomiting, headache, cough, shortness of breath, or any other complaints. She denies or any daily medications otherwise. - CONSTITUTIONAL Constitutional: DENIES: Fever, Chills - EENT EENT: REPORTS: Ear Pain. DENIES: Sore Throat, Eye problems - NEURO Neurology: REPORTS: Headache. DENIES: Weakness, Vision blurred, Dizzinesss / Vertigo - CARDIOVASCULAR Cardiovascular: DENIES: Chest pain - RESPIRATORY Respiratory: DENIES: Trouble Breathing, Coughing - GASTROINTESTINAL Gastrointestinal: DENIES: Abdominal Pain, Black / Bloody Stools - URINARY Urinary: DENIES: Dysuria, Urgency, Frequency - REPRODUCTIVE Reproductive: DENIES: : - MUSCULOSKELETAL Musculoskeletal: DENIES: Extremity pain Past Medical History - General Information source: Patient - Social History Smoking Status: Never Smoker Chew tobacco use (# tins/day): No Frequency of alcohol use: None Drug Abuse: None Lives with: Family Family History: Reviewed & Not Pertinent Patient has homicidal ideation: No Pulmonary Medical History: Reports: Hx Asthma Renal/ Medical History: Denies: Hx Peritoneal Dialysis Psychiatric Medical History: Reports: Hx Depression Traumatic Medical History: Reports: Hx Fractures - ankle and wrist Past Surgical History: Reports: Hx Adenoidectomy, Hx Tonsillectomy - Immunizations Immunizations up to date: Yes Hx Diphtheria, Pertussis, Tetanus Vaccination: Yes Vertical Provider Document - CONSTITUTIONAL General Appearance: WD/WN, No Apparent Distress - INFECTION CONTROL TRAVEL OUTSIDE OF THE [place] IN LAST 30 DAYS: No - HEENT HEENT: Atraumatic, Normocephalic. negative: Normal ENT Exam - Mild erythema of both ear canals but no significant swelling, only minimal tragus tenderness, ear canals otherwise unremarkable, mastoids are nontender, no external swelling of the ears. Tympanic membranes are actually quite unremarkable except for mild effusion on the left which is not purulent. There is some nasal congestion and swollen turbinates, no significant sinus tenderness noted. Unremarkable oropharyngeal exam. - NECK Neck: Lymphadenopathy-Left, Lymphadenopathy-Right, Other - Mild bilateral anterior and posterior cervical adenopathy, slightly more on the right posterior aspect - RESPIRATORY Respiratory: Breath Sounds Normal, No Respiratory Distress. negative: Wheezing - CARDIOVASCULAR Cardiovascular: Regular Rate, Regular Rhythm. negative: Tachycardia - GI/ABDOMEN Gastrointestinal: Abdomen Soft, Abdomen Non-Tender. negative: Abdomen Tender - BACK Back: Normal Inspection - MUSCULOSKELETAL/EXTREMETIES Musculoskeletal/Extremeties: MAEW, FROM, Non-Tender - NEURO Level of Consciousness: Awake, Alert, Appropriate Motor/Sensory: No Motor Deficit, No Sensory Deficit - DERM Integumentary: Warm, Dry, No Rash Course - Re-evaluation Re-evalutation: Patient with some adenopathy, borderline but probably significantly improved ear canals based on minimal evidence of infection, unremarkable tympanic membranes except for a small effusion, mild nasal congestion. Otherwise completely unremarkable exam. Discussed with patient, will improve her sinus congestion management, she will continue her antibiotics, initially patient was going to get dexamethasone but then she declined. Patient requesting work note for tonight. Discussed follow-up and return precautions. Patient states understanding and agreement. Stable and well-appearing at time of discharge. - Vital Signs Vital signs: Temp Pulse Resp BP Pulse Ox 98.5 F 82 18 141/78 H 99 02/14/20 03:04 02/14/20 02:56 02/14/20 02:56 02/14/20 02:56 02/14/20 02:56 Discharge - Discharge Clinical Impression: Cervical adenopathy, Sinus congestion Ear pain Qualifiers: Laterality: bilateral Qualified Code(s): H92.03 - Otalgia, bilateral Condition: Stable Disposition: HOME, SELF-CARE Additional Instructions: Continue the eardrops, I recommend that you use ear coverings/ear phones instead of earplugs for sound control to reduce your symptoms and help you recover faster. I also recommend that you exchange the Margarita for the Zyrtec, use the nasal spray and decongestant if needed, and take ibuprofen and Tylenol if needed for pain. Follow-up with primary care for additional management. I also recommend that you start taking [id number] probiotics to avoid diarrhea while taking the Augmentin. Return for any concerning symptoms including severe headache, swelling at the ear, fever, vomiting, or any other concerning symptoms. Prescriptions: Fexofenadine HCl [Margarita Allergy] 180 mg PO DAILY #30 tablet Fluticasone Propionate [Flonase Nasal [place] 50 Mcg/[place] 16 gm] 1 spray NASL Q12 #1 inhaler Pseudoephedrine HCl [Sudafed 12 Hour] 120 mg PO Q12 PRN #14 tablet.er PRN Reason: Forms: Return to Work
[2020-02-14 05:30] VITALS: BP 133/75
== END 2020-02-14 05:29 | disposition home or self-care (01) ==
LOC: ER 02:50
DX: R59.1 Generalized enlarged lymph nodes (principal); R09.81 Nasal congestion; H92.03 Otalgia, bilateral; R51 Headache
CPT/HCPCS: 99282

== ENCOUNTER 2020-03-01 22:59 | Emergency (ER) | payer OTHER ==
[2020-03-01 23:20] VITALS: BP 125/65
[2020-03-02] MEDS ORDERED: POLYMYXIN B SULFATE/TMP OPH SOLN (10 ML/ER DISP) OD PRN (00:19)
--- NOTE | 2020-03-02 00:25 | ER Document Report ---
HPI - HPI Time Seen by Provider: 03/01/20 23:54 Pain Level: Denies Context: Patient is a 19-year-old female that comes emergency department for chief complaint of right eye redness and irritation that has developed over the past 2 days. She states that 3 days ago her 3-year-old son also developed eye redness and irritation. She denies drainage, injury, blurry vision, pain, runny nose, fever, or any other complaints. She does not wear visual correction. - CONSTITUTIONAL Constitutional: DENIES: Fever, Chills - EENT EENT: REPORTS: Eye problems - REPRODUCTIVE Reproductive: DENIES: : Past Medical History - General Information source: Patient - Social History Smoking Status: Never Smoker Frequency of alcohol use: None Drug Abuse: None Lives with: Family Family History: Reviewed & Not Pertinent Patient has homicidal ideation: No Pulmonary Medical History: Reports: Hx Asthma Renal/ Medical History: Denies: Hx Peritoneal Dialysis Psychiatric Medical History: Reports: Hx Depression Traumatic Medical History: Reports: Hx Fractures - ankle and wrist Past Surgical History: Reports: Hx Adenoidectomy, Hx Tonsillectomy - Immunizations Immunizations up to date: Yes Hx Diphtheria, Pertussis, Tetanus Vaccination: Yes Vertical Provider Document - CONSTITUTIONAL General Appearance: WD/WN, No Apparent Distress - INFECTION CONTROL TRAVEL OUTSIDE OF THE [place] IN LAST 30 DAYS: No - HEENT HEENT: Atraumatic, Conjuctival Injection - Right sided conjunctival injection. No discharge, swelling of the eyelids, or other concerning finding noted. Normal pupils, normal visual acuity, normal EOMs, Normal ENT Exam - Normal ENT exam except for eye exam, see eye exam. Normal oropharyngeal exam, ear exam, nasal exam, Normocephalic, PERRLA - NECK Neck: Normal Inspection - RESPIRATORY Respiratory: Breath Sounds Normal, No Respiratory Distress - CARDIOVASCULAR Cardiovascular: Regular Rate, Regular Rhythm - GI/ABDOMEN Gastrointestinal: Abdomen Soft, Abdomen Non-Tender - BACK Back: Normal Inspection - MUSCULOSKELETAL/EXTREMETIES Musculoskeletal/Extremeties: MAEW, FROM, Non-Tender - NEURO Level of Consciousness: Awake, Alert, Appropriate Motor/Sensory: No Motor Deficit, No Sensory Deficit - DERM Integumentary: Warm, Dry, No Rash Course - Re-evaluation Re-evalutation: Exam is consistent with conjunctivitis, no other concerning findings. Mom is been exposed to her son who also has this and had it originally. Provided with Polytrim eyedrops, discussed expectations, follow-up, return precautions. Mom states understanding and agreement. - Vital Signs Vital signs: Temp Pulse Resp BP Pulse Ox 98.2 F 72 16 125/65 98 03/01/20 23:17 03/01/20 23:10 03/01/20 23:10 03/01/20 23:10 03/01/20 23:10 Discharge - Discharge Clinical Impression: Conjunctivitis Qualifiers: Conjunctivitis type: unspecified Laterality: right Qualified Code(s): H10.9 - Unspecified conjunctivitis Condition: Stable Disposition: HOME, SELF-CARE Additional Instructions: Your evaluation is most consistent with mild conjunctivitis. Use the drops as prescribed to completion (1 drop 4 times a day for 5 days) Avoid rubbing your eyes, if you do so wash your hands, this can be contagious. Follow-up with primary care. Return for any concerning symptoms including developing severe pain, loss of vision, discharge or swelling from the area, fever, or any other concerning symptoms. Forms: Return to Work
== END 2020-03-02 00:35 | disposition home or self-care (01) ==
LOC: ER 22:59
DX: H10.9 Unspecified conjunctivitis (principal)
CPT/HCPCS: 99283; J3490

== ENCOUNTER 2020-03-06 15:50 | Emergency (ER) | payer OTHER ==
[2020-03-06] MEDS ORDERED: TETRACAINE HCL 0.5% OPH SOLN 4 ML OD ONE (16:02)
--- NOTE | 2020-03-06 16:05 | ER Document Report ---
ED Medical Screen (RME) - General Chief Complaint: Redness of Eye Stated Complaint: REDNESS OF EYE Time Seen by Provider: 03/06/20 15:55 Mode of Arrival: Ambulatory Information source: Patient Notes: 19-year-old female presents emergency department with complaints of right eye irritation. Reports she was evaluated here on March 01 with her autistic son for conjunctivitis. She reports at that time she did not have symptoms. She was prescribed Polytrim. She reports she started the drops that night. She reports on the she started having a red eye irritation feels like something is in it. She reports discharge from the eye pain pressure behind the eye difficulty sleeping because of the pain. She reports her son's eye has cleared up. She does not wear contacts or glasses. I have greeted and performed a rapid initial assessment of this patient. A comprehensive ED assessment and evaluation of the patient, analysis of test results and completion of the medical decision making process will be conducted by additional ED providers. TRAVEL OUTSIDE OF THE [place] IN LAST 30 DAYS: No - Related Data Allergies/Adverse Reactions: No Known Allergies Allergy (Verified 03/06/20 15:55) Past Medical History - Social History Chew tobacco use (# tins/day): No Frequency of alcohol use: None Drug Abuse: None Pulmonary Medical History: Reports: Hx Asthma Renal/ Medical History: Denies: Hx Peritoneal Dialysis Psychiatric Medical History: Reports: Hx Depression Traumatic Medical History: Reports: Hx Fractures - ankle and wrist Past Surgical History: Reports: Hx Adenoidectomy, Hx Tonsillectomy - Immunizations Immunizations up to date: Yes Hx Diphtheria, Pertussis, Tetanus Vaccination: Yes Physical Exam - Vital signs Vitals: Temp Pulse Resp BP Pulse Ox 99.0 F 73 19 105/71 98 03/06/20 15:54 03/06/20 15:54 03/06/20 15:54 03/06/20 15:54 03/06/20 15:54 Course - Vital Signs Vital signs: Temp Pulse Resp BP Pulse Ox 99.0 F 73 19 105/71 98 03/06/20 15:56 03/06/20 15:54 03/06/20 15:54 03/06/20 15:54 03/06/20 15:54
--- NOTE | 2020-03-06 16:38 | ER Document Report ---
ED General - General Chief Complaint: Redness of Eye Stated Complaint: REDNESS OF EYE Time Seen by Provider: 03/06/20 15:55 Mode of Arrival: Ambulatory Notes: triage note pt reports son was seen here for redness of eye. states they have completed 4 days of drops. states she was doing the drops because of her son. states she feels like she has pressure behind the right eye. states itches and otero. states some drainage. states hurts to blink. reports vision blurry in that eye. states when she gets up in the am the eye is swollen and matted. my notes 19-year-old female arrived by POV with chief complaint of having 3 days of red and irritated and photophobic right eye. Patient reports she has been using Polytrim eyedrops. She was dispensed this when her son was here 4 days ago with similar symptoms. Her son is autistic and is known to be touching her face and around her eyes and nose quite a bit and therefore prophylactically they placed her on that even though she did not have any red eyes at that time when her son was brought here. Since that time she has been using Polytrim which is a combination of polymyxin B and trimethoprim but she reports this is burning her eyes when it is applied. Patient reports "she works at [employer] and she has 3 weeks of leave unpaid after she and several women accused her saini of sexual harassment." Patient denies any cephalgia nuchal rigidity skin rash cough or cold sore throat rhinorrhea or involvement of the left eye. TRAVEL OUTSIDE OF THE [place] IN LAST 30 DAYS: No - Related Data Allergies/Adverse Reactions: No Known Allergies Allergy (Verified 03/06/20 15:55) Past Medical History - General Information source: Patient - Social History Smoking Status: Never Smoker Cigarette use (# per day): No Chew tobacco use (# tins/day): No Smoking Education Provided: No Frequency of alcohol use: None Drug Abuse: None Lives with: Family Family History: Reviewed & Not Pertinent Patient has suicidal ideation: No Patient has homicidal ideation: No Pulmonary Medical History: Reports: Hx Asthma Renal/ Medical History: Denies: Hx Peritoneal Dialysis Psychiatric Medical History: Reports: Hx Depression Traumatic Medical History: Reports: Hx Fractures - ankle and wrist Past Surgical History: Reports: Hx Adenoidectomy, Hx Tonsillectomy - Immunizations Immunizations up to date: Yes Hx Diphtheria, Pertussis, Tetanus Vaccination: Yes Review of Systems - Review of Systems Constitutional: See HPI EENT: See HPI, Eye pain, Eye discharge, Blurred vision, Tearing Cardiovascular: No symptoms reported Respiratory: No symptoms reported Gastrointestinal: No symptoms reported Genitourinary: No symptoms reported Female Genitourinary: No symptoms reported Musculoskeletal: No symptoms reported Skin: No symptoms reported Hematologic/Lymphatic: No symptoms reported Neurological/Psychological: No symptoms reported Physical Exam - Vital signs Vitals: Temp Pulse Resp BP Pulse Ox 99.0 F 73 19 105/71 98 03/06/20 15:54 03/06/20 15:54 03/06/20 15:54 03/06/20 15:54 03/06/20 15:54 Interpretation: Febrile - General General appearance: Alert - HEENT Head: Normocephalic, Atraumatic Eyes: Normal Conjunctiva: Injected - right eye only Cornea: Normal Extraocular movements intact: Yes Pupils: PERRL Visual acuity- Right eye: 20/40 Visual acuity- Left eye: 20/25 Visual acuity- Both eyes: 20/30 Corrective lenses worn: No Sinus: Normal Nasal: Normal Mouth/Lips: Normal Mucous membranes: Normal Pharynx: Normal Neck: Normal - Respiratory Respiratory status: No respiratory distress Chest status: Nontender Breath sounds: Normal Chest palpation: Normal - Cardiovascular Rhythm: Regular Heart sounds: Normal auscultation Murmur: No - Abdominal Inspection: Normal Distension: No distension Bowel sounds: Normal Tenderness: Nontender Organomegaly: No organomegaly - Rectal Stool: Other - deferred - Genitourinary External exam: Other - deferred - Back Back: Normal - Extremities General upper extremity: Normal inspection General lower extremity: Normal inspection - Neurological Neuro grossly intact: Yes Cognition: Normal Orientation: AAOx4 Kate Coma Scale Eye Opening: Spontaneous [place] Coma Scale Verbal: Oriented [place] Coma Scale Motor: Obeys Commands Kate Coma Scale Total: 15 Speech: Normal Motor strength normal: LUE, RUE, LLE, RLE Sensory: Normal - Psychological Associated symptoms: Normal affect - Skin Skin Temperature: Warm Skin Moisture: Dry Course - Vital Signs Vital signs: Temp Pulse Resp BP Pulse Ox 99.0 F 73 19 105/71 98 03/06/20 15:56 03/06/20 15:54 03/06/20 15:54 03/06/20 15:54 03/06/20 15:54 Critical Care Note - Critical Care Note Total time excluding time spent on procedures (mins): 90 Discharge - Discharge Clinical Impression: pink eye conjunctivitis, Viral infection of right eye Condition: Good Disposition: HOME, SELF-CARE Instructions: Eyedrop Use ([facility]), Conjunctivitis ([facility]) Additional Instructions: Follow-up with eye doctor next week if symptoms persist return to ER as needed take medicines as directed encourage fluids and lukewarm moist compresses to right eye every morning and wear sunglasses daily. Be sure to clean your eyeglasses with warm water and soap or other appropriate cleanser daily. Avoid touching your left eye with your hands. Prescriptions: Tobramycin Sulfate/Dexameth [Tobradex Oph Drops 2.5 Ml Bottle] 1 drop RT_EYE QID 5 Days #1 bottle Acyclovir [Zovirax 200 mg Capsule] 200 mg PO TID 5 Days #15 capsule
[2020-03-06 17:16] VITALS: BP 118/68
== END 2020-03-06 17:20 | disposition home or self-care (01) ==
LOC: ER 15:50
DX: H44.001 Unspecified purulent endophthalmitis, right eye (principal); B96.89 Other specified bacterial agents as the cause of diseases classified elsewhere; H10.029 Other mucopurulent conjunctivitis, unspecified eye; J45.909 Unspecified asthma, uncomplicated
CPT/HCPCS: 99284; J3490